=== PATIENT | female | born 1940 | race African-American/Black ===

== ENCOUNTER 2020-12-17 10:59 | Emergency (ER) | payer OTHER ==
[2020-12-17 11:45] LABS: Protime INR 1.36
[2020-12-17 11:47] LABS: Absolute Lymphocytes (CBC) 0.2 K/uL (0.7-4.9); Basophils % 0.4 % (0-1.3); Hematocrit 48.1 % (36.0-45.0); Lymphocytes % 2.8 % (15.3-44.8); MPV 9.6 fL (7.6-11.3); RBC Red Blood Cell Count 5.08 M/uL (3.86-4.86)
--- NOTE | 2020-12-17 11:47 | RAD REPORT ---
EXAM DESCRIPTION: Terri Single View12/17/2020 11:39 am CLINICAL HISTORY: Shortness of breath COMPARISON: none FINDINGS: Consolidation involves the lower lobes. Probable small to moderate bilateral pleural effusions. Cardiomegaly IMPRESSION: Consolidation involves the lower lobes probably pneumonia. Another consideration is that this represents a combination of atelectasis and pulmonary edema
[2020-12-17] MEDS ORDERED: METHYLPREDNISOLONE 125 MG INJ ONE (11:55)
[2020-12-17] MEDS ORDERED: CEFTRIAXONE 1000 MG/VIAL ONE (11:56)
[2020-12-17] MEDS ORDERED: AZITHROMYCIN 500 MG INJ IVPB ONE (11:56)
[2020-12-17] MEDS ORDERED: NA CHLORIDE 0.9% 1,000 ML ONE ×2 (11:56→13:52)
[2020-12-17] MEDS ORDERED: NA CHLORIDE 0.9% 250 ML ONE (11:56)
[2020-12-17 12:01] LABS: Albumin 3.6 g/dL (3.4-5.0); Bilirubin Direct 0.3 mg/dL (0-0.2); Bilirubin Total 0.6 mg/dL (0.2-1.0); Magnesium 2.1 mg/dL (1.8-2.4); Protein, Total 8.3 g/dL (6.4-8.2); Troponin (Emerg Dept Use Only) 0.09 ng/mL (0.0-0.045)
[2020-12-17 12:03] LABS: CKMB Creatine Kinase MB 12.1 ng/mL (1.0-3.6)
[2020-12-17 12:39] LABS: Blood Morphology Comment NOT SEEN (NOT SEEN); Platelet Estimate ADEQ
--- NOTE | 2020-12-17 13:34 | ER ---
Nurse's Notes [facility] – [place], [place] Name: Lisbeth Velarde Age: 80 yrs Sex: Female : 1940 Arrival Date: 12/17/2020 Time: 11:02 Bed 4 Private MD: Diagnosis: Cardiac arrest due to other underlying condition-COVID - 19 Presentation: 12/17 11:02 Chief complaint: EMS states: They were called to [place] for a patient who was short ap3 of breath. It is reported patient was Dx with Pneumonia approx one week ago, and has been on Levaquin since. Patient was 99% on room air upon EMS's arrival to [place]. Coronavirus screen: Client presents with at least one sign or symptom that may indicate coronavirus-19. Standard/surgical mask placed on the client. Provider contacted for isolation considerations. Ebola Screen: No symptoms or risks identified at this time. Initial Sepsis Screen: Does the patient meet any 2 criteria? No. Patient's initial sepsis screen is negative. Does the patient have a suspected source of infection? No. Patient's initial sepsis screen is negative. Risk Assessment: Do you want to hurt yourself or someone else? Patient reports no desire to harm self or others. Onset of symptoms was December 09, 2020. Care prior to arrival: IV initiated. 20 GA, in the left forearm. 11:02 Method Of Arrival: EMS: [facility] ap3 11:02 Acuity: JEFF 3 ap3 Triage Assessment: 11:23 General: Appears uncomfortable, Behavior is calm. Pain: Denies pain. Neuro: Level of ap3 Consciousness is awake, alert, obeys commands, Oriented to person, place, time. Cardiovascular: Patient's skin is warm and dry. Respiratory: Airway is patent Respiratory effort is even, unlabored, Respiratory pattern is regular, symmetrical, Breath sounds are diminished in left posterior lower lobe, right posterior middle lobe and right posterior lower lobe. Historical: - Allergies: 11:13 Erythromycin; ap3 - Home Meds: 11:13 Lactobacillus acidoph-pectin oral cap daily [Active]; Aldactone 50 mg Oral tab 1 tab ap3 once daily [Active]; ascorbic acid (vitamin C) 500 mg cap daily [Active]; aspirin 81 mg Oral tab 81 mg daily [Active]; Levaquin 500 mg Oral tab 1 tab once daily [Active]; loratadine 10 mg oral cap [Active]; pregabalin 75 mg Oral cap 1 cap daily [Active]; metoprolol tartrate 25 mg Oral tab 1 tab once daily [Active]; omeprazole 20 mg Oral cpDR 1 cap once daily [Active]; simethicone 125 mg Oral cap 125 mg after meals [Active]; acetaminophen 325 mg Oral cap 325 mg as needed [Active]; zinc sulfate 220 mg Oral cap daily [Active]; - PMHx: 11:30 Myocardial infarction; Anemia; Chronic Embolism; Osteoarthritis; Congestive heart ap3 failure; COVID; - Immunization history:: Adult Immunizations up to date, Client reports receiving the 2nd dose of the Covid vaccine. - Social history:: Smoking status: unknown Patient/guardian denies using alcohol, street drugs, The patient lives with family. - Family history:: not pertinent. Screenin:22 Abuse screen: Denies threats or abuse. Nutritional screening: No deficits noted. ap3 Tuberculosis screening: No symptoms or risk factors identified. Fall Risk No fall in past 12 months (0 pts). Secondary diagnosis (15 points) IV access (20 points). Ambulatory Aid- None/Bed Rest/Nurse Assist (0 pts). Gait- Impaired (20 pts.). Mental Status- Oriented to own ability (0 pts). Total Matias Fall Scale indicates High Risk Score (45 or more points). Fall prevention measures have been instituted. Side Rails Up X 2 Placed Close to Nursing Station Frequent Obs/Assessments Occuring As available patient and family educated on Fall Prevention Program and Strategies. Assessment: 11:15 General: SEE TRIAGE NOTE. bp 12:11 Reassessment: Patient and/or family updated on plan of care and expected duration. Pain ap3 level reassessed. Patient is alert, oriented x 3, equal unlabored respirations, skin warm/dry/pink. 12:35 Reassessment: PT NOTABLY BRADYCARDIC AND HYPOTENSIVE. MD NOTIFIED AND ORDERS GIVEN. bp 13:15 Reassessment: PT RETURNED FROM CT. NOTABLY SLOW RESP AND NO RESPONSE TO STIMULI. PT bp NOTED HYPOTENSIVE AND BRADYCARDIC. MD AT B/S. PT DNR ORDER CONFIRMED. DECISION TO ALLOW A NATURAL , PER PT AND FAMILY WISHES. 13:18 Cardiovascular: Heart tones absent. Respiratory: Breath sounds are absent. ap3 13:18 Reassessment: TIME OF . NO CARDIAC ACTIVITY NOTED ON MX LEADS. MD CONFIRMS NO bp CARDIAC OR RESP ACTIVITY NOTED VIA AUSCULTATION. 13:25 Reassessment: Dr. Hart speaking with patient's daughter, Susan over the phone at this time updating on her passing. 13:40 Reassessment: Notified [facility] Nurse, Lisbeth of patient's passing. Lisbeth. Vital Signs: 11:02 BP 91 / 75; Pulse 70; Resp 18; Pulse Ox 98% on R/A; ap3 11:28 Temp 98.4(TE); ap3 11:33 Weight 71.76 kg; Height 63 in. (160.02 cm); ap3 12:11 BP 79 / 63; Pulse 49; Resp 17; Pulse Ox 94% on R/A; ap3 12:52 BP 76 / 64 LA (auto/reg); Pulse 39; Resp 17; Pulse Ox 99% on 2 lpm NC; ap3 13:15 BP 47 / 33; Pulse 67; Resp 0; Temp 97.5; Pulse Ox 95% ; bp 11:33 Body Mass Index 28.02 (71.76 kg, 160.02 cm) ap3 12:52 Provider notified of patients vital signs ap3 ED Course: 11:02 Patient arrived in ED. ap3 11:02 Eleni Hart MD is Attending Physician. ma2 11:10 Darryl Harrington, RN is Primary Nurse. bp 11:13 Triage completed. ap3 11:23 Arm band placed on right wrist. ap3 11:23 Patient has correct armband on for positive identification. Placed in gown. Bed in low ap3 position. Call light in reach. Side rails up X2. environmental monitoring technician on. Pulse ox on. NIBP on. Door closed. Noise minimized. 11:32 EKG done, by ED staff, reviewed by Eleni Hart MD. em1 11:38 XRAY CXR (1 view) In Process Unspecified. EDMS 12:02 COVID swab sent to lab. ap3 12:38 COVID-19 SARS RT PCR (Document "Date of Onset" if Symptomatic) Sent. bp 13:11 CT Chest For PE Angio Sent. bp 13:18 CT Chest For PE Angio In Process Unspecified. EDMS 13:33 Eleni Hart MD is Pronouncing Provider. ma2 Administered Medications: 11:40 Drug: SOLU-Medrol (methylPrednisoLONE) 125 mg Route: IVP; Site: left forearm; bp 12:37 Follow up: Response: Marked relief of symptoms bp 11:40 Drug: Rocephin (cefTRIAXone) 1 grams Route: IV; Rate: calculated rate; Site: left bp forearm; 11:40 Drug: AZITHromycin 500 mg Route: IVPB; Infused Over: 1 hrs; Site: left forearm; bp 13:44 Follow up: IV Status: Completed infusion; IV Intake: 250ml bp 11:40 Drug: NS 0.9% 1000 ml Route: IV; Rate: 125 ml/hr; Site: left forearm; bp 13:43 Follow up: IV Status: Completed infusion; IV Intake: 250ml bp 13:00 Drug: NS 0.9% 1000 ml Route: IV; Rate: 1 bolus; Site: left forearm; bp 13:43 Follow up: IV Status: Completed infusion; IV Intake: 1000ml bp Intake: 13:43 IV: 1000ml; Total: 1000ml. bp 13:43 IV: 250ml; Total: 1250ml. bp 13:44 IV: 250ml; Total: 1500ml. bp Outcome: 13:42 Patient : Time of 13:18 Pronounced by Eleni Hart MD bp 13:42 Condition: 21:30 Patient left the ED. lp1 Signatures: Dispatcher [employer] EDMS Ulises Layne em1 Gay Martinez RN RN ss Pena, Laura RN RN lp1 Darryl Harrington RN RN bp Alzahri, Mohammad, MD MD ma2 Maria Reid RN RN ap3 Corrections: (The following items were deleted from the chart) 13:39 12:35 Reassessment: PT NOTABLY BRADYCARDIC AND HYPOTENSIVE. NOTIFIED AND ORDERS bp GIVEN. bp
--- NOTE | 2020-12-17 13:34 | EDPHYS ---
Physician Documentation [facility] Name: Lisbeth Velarde Age: 80 yrs Sex: Female : 1940 Arrival Date: 12/17/2020 Time: 11:02 Bed 4 Private MD: ED Physician Eleni Hart HPI: 12/17 12:41 This 80 yrs old Black Female presents to ER via EMS with complaints of pneumonia. ma2 12:41 The patient has shortness of breath at rest. ma2 12:42 Onset: The symptoms/episode began/occurred gradually, 3 day(s) ago. Associated signs ma2 and symptoms: Pertinent positives: productive cough, Pertinent negatives: diaphoresis, fever, loss of consciousness, numbness in extremities. Severity of symptoms: At their worst the symptoms were moderate in the emergency department the symptoms are unchanged. The patient has not experienced similar symptoms in the past. Historical: - Allergies: 11:13 Erythromycin; ap3 - Home Meds: 11:13 Lactobacillus acidoph-pectin oral cap daily [Active]; Aldactone 50 mg Oral tab 1 tab ap3 once daily [Active]; ascorbic acid (vitamin C) 500 mg cap daily [Active]; aspirin 81 mg Oral tab 81 mg daily [Active]; Levaquin 500 mg Oral tab 1 tab once daily [Active]; loratadine 10 mg oral cap [Active]; pregabalin 75 mg Oral cap 1 cap daily [Active]; metoprolol tartrate 25 mg Oral tab 1 tab once daily [Active]; omeprazole 20 mg Oral cpDR 1 cap once daily [Active]; simethicone 125 mg Oral cap 125 mg after meals [Active]; acetaminophen 325 mg Oral cap 325 mg as needed [Active]; zinc sulfate 220 mg Oral cap daily [Active]; - PMHx: 11:30 Myocardial infarction; Anemia; Chronic Embolism; Osteoarthritis; Congestive heart ap3 failure; COVID; - Immunization history:: Adult Immunizations up to date, Client reports receiving the 2nd dose of the Covid vaccine. - Social history:: Smoking status: unknown Patient/guardian denies using alcohol, street drugs, The patient lives with family. - Family history:: not pertinent. ROS: 12:42 Constitutional: Negative for fever, chills, and weight loss. ma2 12:42 All other systems are negative. Exam: 12:42 Constitutional: This is a well developed, well nourished patient who is awake, alert, ma2 and in no acute distress. Head/Face: Normocephalic, atraumatic. Eyes: Pupils equal round and reactive to light, extra-ocular motions intact. Lids and lashes normal. Conjunctiva and sclera are non-icteric and not injected. Cornea within normal limits. Periorbital areas with no swelling, redness, or edema. ENT: Nares patent. No nasal discharge, no septal abnormalities noted. Tympanic membranes are normal and external auditory canals are clear. Oropharynx with no redness, swelling, or masses, exudates, or evidence of obstruction, uvula midline. Mucous membranes moist. Neck: Trachea midline, no thyromegaly or masses palpated, and no cervical lymphadenopathy. Supple, full range of motion without nuchal rigidity, or vertebral point tenderness. No Meningismus. Chest/axilla: Normal chest wall appearance and motion. Nontender with no deformity. No lesions are appreciated. Cardiovascular: Regular rate and rhythm with a normal S1 and S2. No gallops, murmurs, or rubs. Normal PMI, no JVD. No pulse deficits. Abdomen/GI: Soft, non-tender, with normal bowel sounds. No distension or tympany. No guarding or rebound. No evidence of tenderness throughout. 12:42 MS/ Extremity: Pulses equal, no cyanosis. Neurovascular intact. Full, normal range of motion. Neuro: Awake and alert, GCS 15, oriented to person, place, time, and situation. Cranial nerves II-XII grossly intact. Motor strength 5/5 in all extremities. Sensory grossly intact. Cerebellar exam normal. Normal gait. 12:42 Respiratory: moderate respiratory distress is noted, Respirations: labored breathing, Breath sounds: rales, that are moderate, are located in both bases, bronchial sounds, that are moderate, Respiratory rate: 22 Vital Signs: 11:02 BP 91 / 75; Pulse 70; Resp 18; Pulse Ox 98% on R/A; ap3 11:28 Temp 98.4(TE); ap3 11:33 Weight 71.76 kg; Height 63 in. (160.02 cm); ap3 12:11 BP 79 / 63; Pulse 49; Resp 17; Pulse Ox 94% on R/A; ap3 12:52 BP 76 / 64 LA (auto/reg); Pulse 39; Resp 17; Pulse Ox 99% on 2 lpm NC; ap3 13:15 BP 47 / 33; Pulse 67; Resp 0; Temp 97.5; Pulse Ox 95% ; bp 11:33 Body Mass Index 28.02 (71.76 kg, 160.02 cm) ap3 12:52 Provider notified of patients vital signs ap3 MDM: 11:02 Patient medically screened. ma2 12:42 Differential diagnosis: Anemia asthma, Bronchitis CHF exacerbation, pneumonia, Sepsis. ma2 13:29 Data reviewed: vital signs. ED course: patient was septic and had low bp, given NS ma2 30ml/kg, however she continued to be septic and hypotensive, she is DNR/DNI. she had cardiac arrest and I pronounced her at 1318. 12/17 11:03 Order name: BMP ma2 12/17 11:03 Order name: Blood Culture Adult (2) md2 12/17 11:03 Order name: CBC with Diff md2 12/17 11:03 Order name: CPK; Complete Time: 12:23 ma2 12/17 11:03 Order name: Ckmb; Complete Time: 12:23 ma2 12/17 11:03 Order name: D-Dimer; Complete Time: 12:23 ma2 12/17 11:03 Order name: Hepatic Function; Complete Time: 12:23 ma2 12/17 11:03 Order name: Lipase; Complete Time: 12:23 ma2 12/17 11:03 Order name: Magnesium; Complete Time: 12:23 md2 12/17 11:03 Order name: NT PRO-BNP; Complete Time: 12:23 ma2 12/17 11:03 Order name: PT-INR; Complete Time: 12:23 ma2 12/17 11:03 Order name: Ptt, Activated; Complete Time: 12:23 ma2 12/17 11:03 Order name: Troponin (emerg Dept Use Only); Complete Time: 12:23 ma2 12/17 11:04 Order name: Basic Metabolic Panel; Complete Time: 12:23 EDMS 12/17 11:03 Order name: XRAY CXR (1 view); Complete Time: 12:23 ma2 12/17 11:03 Order name: EKG; Complete Time: 11:04 ma2 12/17 11:04 Order name: Blood Culture EDMS 12/17 11:04 Order name: CBC with Automated Diff; Complete Time: 12:52 EDMS 12/17 11:37 Order name: COVID-19 SARS RT PCR (Document "Date of Onset" if Symptomatic) 12/17 11:37 Order name: SARS-COV-2 RT PCR; Complete Time: 21:06 EDMS 12/17 12:26 Order name: Procalcitonin md2 12/17 12:39 Order name: Manual Differential; Complete Time: 12:52 EDMS 12/17 12:42 Order name: CT Chest For PE Angio md2 12/17 11:03 Order name: Cardiac monitoring; Complete Time: 11:25 ma2 12/17 11:03 Order name: EKG - Nurse/Tech; Complete Time: 11:31 ma2 12/17 11:03 Order name: IV Saline Lock; Complete Time: 11:25 ma2 12/17 11:03 Order name: Labs collected and sent; Complete Time: 11:24 ma2 12/17 11:03 Order name: O2 Per Protocol; Complete Time: 11:24 ma2 12/17 11:03 Order name: O2 Sat Monitoring; Complete Time: 11:24 ma2 12/17 12:26 Order name: IV Saline Lock - Large Bore; Complete Time: 12:32 ma2 Administered Medications: 11:40 Drug: SOLU-Medrol (methylPrednisoLONE) 125 mg Route: IVP; Site: left forearm; bp 12:37 Follow up: Response: Marked relief of symptoms bp 11:40 Drug: Rocephin (cefTRIAXone) 1 grams Route: IV; Rate: calculated rate; Site: left bp forearm; 11:40 Drug: AZITHromycin 500 mg Route: IVPB; Infused Over: 1 hrs; Site: left forearm; bp 13:44 Follow up: IV Status: Completed infusion; IV Intake: 250ml bp 11:40 Drug: NS 0.9% 1000 ml Route: IV; Rate: 125 ml/hr; Site: left forearm; bp 13:43 Follow up: IV Status: Completed infusion; IV Intake: 250ml bp 13:00 Drug: NS 0.9% 1000 ml Route: IV; Rate: 1 bolus; Site: left forearm; bp 13:43 Follow up: IV Status: Completed infusion; IV Intake: 1000ml bp Disposition: 13:29 . ma2 13:32 . ma2 13:32 . ma2 13:38 Critical Care:. ma2 Disposition Summary: 12/17/20 13:33 Patient Location: Home ma2 Pronouncing Physician: Eleni Hart Time of : 13:18 12/17/2020(12/17/20 13:34) ma2 Diagnosis - Cardiac arrest due to other underlying condition - COVID - 19(12/17/20 13:39) ma2 Critical care time excluding procedures: 13:38 Critical care time: Bedside Care: 30 minutes, Consultation: 10 minutes, Family ma2 Intervention: 5 minutes. Total time: 45 minutes Signatures: Dispatcher [employer] EDMS Jon Martinez PA PA jmm Attema, Lee, RN ED-C RN ED-Cla1 Darryl Harrington, RN RN bp Eleni Hart MD MD ma2 Maria Reid RN RN ap3 Corrections: (The following items were deleted from the chart) 13:34 13:33 13:33 12/17/2020 ma2 ma2 13:39 13:33 Cardiac arrest due to other underlying condition ma2 ma2 13:43 12:26 Urine Dipstick-Ancillary ordered. ma2 bp
--- NOTE | 2020-12-17 13:45 | RAD REPORT ---
EXAM DESCRIPTION: CT - Chest For Pe Angio - 12/17/2020 1:18 pm CLINICAL HISTORY: cough TECHNIQUE: Dynamically enhanced axial 3 mm thick images of the chest were obtained during administra tion of <100> mL Isovue 370 IV contrast. Coronal and oblique reconstruction images were generated and reviewed. Exam utilizes a protocol for optimal evaluation of pulmonary arterial tree. Maximum intensity projections 3D imaging was utilized All CT scans are performed using dose optimization technique as appropriate and may include automated exposure control or mA/KV adjustment according to patient size. FINDINGS: A pulmonary embolus is not seen. A thoracic aortic aneurysm is not noted. Moderate to large bilateral pleural effusions with bibasilar atelectasis. Cardiomegaly Diffuse edema within the subcutaneous tissues Distention of the IVC with prominence of the hepatic veins likely related to right heart failure IMPRESSION: Negative for a pulmonary embolism. Moderate to large bilateral pleural effusions with bibasilar atelectasis.
[2020-12-17 21:41] VITALS: BP 47/33; TEMP 97.5; O2SAT 95
== END 2020-12-17 21:30 | disposition expired ==
LOC: ER 10:59
DX: U07.1 COVID-19 (principal); I50.9 Heart failure, unspecified; I25.2 Old myocardial infarction; Z79.82 Long term (current) use of aspirin; Z88.3 Allergy status to other anti-infective agents
CPT/HCPCS: 96365; 93005; 87040 ×2; 85025; 80048; 36415; 83735; 82550; 87205; 85610; 85379; 80076; 85730; 84484; 82553; 83690; 84145; 83880; 71275; 71045; 96375; 99285; 96366; U0003; Q9967; J0456; J7050; J7030 ×2; J2930